=== PATIENT | male | born 1955 | race Caucasian/White ===

== ENCOUNTER 2021-07-04 20:21 | Emergency (ER) | payer MEDICARE, OTHER ==
[~2021-07-04] VITALS: Ht 175.3 cm; Wt 97.3 kg
--- NOTE | 2021-07-04 20:53 | PHYS DOC ---
Adult General Chief Complaint Chief Complaint: HYPERGLYCEMIA HPI HPI Patient is a 66-year-old male with diabetes who presents for chief complaint of hyperglycemia and med refills. States he is here [place] and forgot his insulin and has not had it in 2 days. States he ch ecked his blood sugar today and it was elevated and wanted to come in before he got too sick. States he is eating and drinking normally. States he is making urine and stool normally for him. Denies any headaches, chest pain, shortness of breath, abdominal pain, nausea, vomiting, diarrhea. Denies any numbness/weakness/tingling. Review of Systems Review of Systems Review of systems otherwise unremarkable except noted in HPI Physical Exam Physical Exam Constitutional: Well developed, well nourished, no acute distress, non-toxic appearance. [] HENT: Normocephalic, atraumatic, bilateral external ears normal, oropharynx moist, no oral exudates, nose normal. [] Eyes: conjunctiva normal, no discharge. [] Neck: Normal range of motion, no tenderness, supple, no stridor. [] Cardiovascular:Heart rate regular rhythm, no murmur [] Lungs & Thorax: Bilateral breath sounds clear to auscultation [] Abdomen: Bowel sounds normal, soft, no tenderness, no masses, no pulsatile masses. [] Skin: Warm, dry, no erythema, no rash. [] Back: No tenderness, no CVA tenderness. [] Extremities: No tenderness, no cyanosis, no clubbing, ROM intact, no edema. [] Neurologic: Alert and oriented X 3, normal motor function, normal sensory funct ion, no focal deficits noted. [] Psychologic: Affect normal, judgement normal, mood normal. [] Current Patient Data Lab Results Laboratory Tests Test 07/04/21 20:46 Glucose (Fingerstick) 475 mg/dL (70-99) H EKG EKG [] Radiology/Procedures Radiology/Procedures [] Heart Score C/O Chest Pain: No Risk Factors: Risk Factors: DM, Current or recent (<one month) smoker, HTN, HLP, family history of CAD, obesity. Risk Scores: Risk Factors: DM, Current or recent (<one month) smoker, HTN, HLP, family history of CAD, obesity. Course & Med Decision Making Course & Med Decision Making Patient is a 66-year-old male who presents with hyperglycemia wanting med refills Vital signs notable for hypertension. Physical exam noted above. Patient placed on monitor with IV access established and IV fluid resuscitation begun Laboratory analysis notable for hyperglycemia which was resolving with and went from 4 75-3 92. No signs of DKA. Patient a little dry but is drinking fluids. Given home dose of long-acting insulin. Given prescriptions for a few days of his insulin while he is visiting. Advised to follow-up as soon as he can with his primary care physician Gave return precautions to the ED. Patient grateful, verbalized understanding and agreed with plan of discharge [] Dragon Disclaimer Dragon Disclaimer This electronic medical record was generated, in whole or in part, using a voice recognition dictation system. Departure Departure: Impression: Primary Impression: Hyperglycemia Additional Impression: Medication refill Disposition: HOME / SELF CARE / HOMELESS Condition: STABLE Referrals: PCP,UNKNOWN (PCP) PARAS SAXENA MD Patient Instructions: Hyperglycemia Additional Instructions: Thank you for coming into the emergency department tonight and allowing us to take care of you. Please read the attached information carefully to go over things we discussed. Please be sure to eat at least 3 nutritious meals a day and take your blood sugar as we discussed. Please stay well-hydrated. Please take your insulin according to your blood sugar and as you take it at home. Please follow-up with your home primary care physician as soon as you can to set up a follow-up for when you get home to [place]. Please come back with new or concerning symptoms as discussed. Please only take your insulin if you are ea ting appropriately and have checked your blood sugar beforehand as we discussed. They can cause serious health risks if you take insulin without eating and/or checking your blood sugar. Scripts Insulin Glargine,Hum.rec.anlog (LANTUS) 100 Unit/1 Ml Vial 20 UNIT SQ QHS for hyperglycemia for 7 Days, #1 EACH Prov: ARLEN GARCIA MD 07/04/21 Insulin Lispro (HUMALOG) 100 Unit/1 Ml Insuln.pen 15 UNIT SQ TIDAC for hyperglycemia for 7 Days, #1 EACH 0 Refills Prov: ARLEN GARCIA MD 07/04/21 Problem Qualifiers ARLEN GARCIA MD Jul 04, 2021 20:53
[2021-07-04] MEDS ORDERED: IV RINGERS SOLUTION,LACTATED 1,000 ML IV ONE (21:00)
[2021-07-04 21:57] LABS: BASO % 0 % (0-3); EOS # 0.3 x10^3/uL (0.0-0.7); EOS % 4 % (0-3); HEMATOCRIT 40.7 % (39.0-53.0); HEMOGLOBIN 13.3 g/dL (13.0-17.5); LYMPH % 13 % (24-48); MEAN CORPUSCULAR HEMOGLOBIN 28 pg (25-35); MEAN CORPUSCULAR HGB CONC 33 g/dL (31-37); MEAN CORPUSCULAR VOLUME 86 fL (79-100); MONO # 0.8 x10^3/uL (0.0-1.1); MONO % 10 % (0-9); NEUT # 5.8 x10^3uL (1.8-7.7); NEUT % 73 % (31-73); PLATELET COUNT 222 x10^3/uL (140-400); RED BLOOD COUNT 4.71 x10^6/uL (4.30-5.70); RED CELL DISTRIBUTION WIDTH 13.3 % (11.5-14.5); WHITE BLOOD COUNT 7.9 x10^3/uL (4.0-11.0)
[2021-07-04 22:01] LABS: CALCIUM 8.8 mg/dL (8.5-10.1); CREATININE 1.5 mg/dL (0.7-1.3); GFR 46.7; POTASSIUM 4.4 mmol/L (3.5-5.1)
[2021-07-04 22:17] LABS: BACTERIA,URINE 0 /HPF (0-FEW); CLARITY,URINE CLEAR; COLOR,URINE YELLOW; GLUCOSE,URINE 500 mg/dL (NEG); NITRITE,URINE NEG (NEG); RBC,URINE OCC /HPF (0-2); SQUAMOUS EPITHELIAL CELL,UR OCC /LPF; UROBILINOGEN,URINE 0.2 mg/dL (0.2 mg/dL); WBC,URINE OCC /HPF (0-4)
[2021-07-04] MEDS ORDERED: INSU100I11 SQ (23:17)
[2021-07-04] MEDS ORDERED: INSU100V8 SQ (23:17)
[2021-07-04 23:45] VITALS: BP 152/88
[2021-07-05] MEDS ORDERED: INSULIN GLARGINE SYRINGE. SQ SCH (21:00)
== END 2021-07-04 23:55 | disposition home or self-care (01) ==
LOC: ER 20:21
DX: E11.65 Type 2 diabetes mellitus with hyperglycemia (principal); Z76.0 Encounter for issue of repeat prescription
CPT/HCPCS: 36415; 80048; 81001; 82947; 83735; 85025; 96360; 99283; J1815; J7120